=== PATIENT | male | born 1985 | race Caucasian/White ===

== ENCOUNTER → 2018-04-08 | Outpatient (CLI) | payer BC ==
--- NOTE | 2018-04-09 06:52 | CT ---
EXAMINATION TYPE: CT chest w con DATE OF EXAM: 04/08/2018 COMPARISON: NONE HISTORY: abnormal findings on recent cxr, c/o cough CT DLP: 411.5 mGycm. Automated Exposure Control for Dose Reduction was Utilized. TECHNIQUE: CT scan of the thorax is performed following with IV Contrast, patient injected with 100 mL of Isovue 300. FINDINGS: LUNGS: The lungs are grossly clear, there is no concerning parenchymal mass or nodule identified. T here is no pleural effusion or pneumothorax seen. The tracheobronchial tree is patent. MEDIASTINUM: There are no greater than 1 cm hilar or mediastinal lymph nodes. No cardiomegaly or pe ricardial effusion is seen. OTHER: Small degree of bilateral gynecomastia is present. Liver is heterogeneously hypodense. There i s subcentimeter low dense lesion anteriorly axial image 49 to small to further characterize. There is a vague 1 cm hypodense lesion posteriorly axial image 55 also too small to further characterize. Bot h lesions favored benign. Splenomegaly is present axial image 58 measuring 15.9 cm long axis. 4 oval densities in stomach likely reflect recently ingested pills prior to study. Correlate clinically. IMPRESSION: 1. No suspicious acute pulmonary process. 2. Splenomegaly noted which may warrant further clinical workup.
== END | disposition home or self-care (01) ==
LOC: RADCTMAIN 15:35
PROVIDERS: ATTEND Family Medicine
DX: R93.89 Abnormal findings on diagnostic imaging of other specified body structures (principal)
CPT/HCPCS: 71260; Q9967

== ENCOUNTER 2019-01-08 08:45 | Day surgery (SDC) | payer BC ==
[2019-01-06 10:12] VITALS: BMI 29.4
[2019-01-08 09:02] VITALS: TEMP 9.1
[2019-01-08] MEDS: LACTATED RINGERS 1,000 ML IV SCH ×2 (09:15→09:17)
[2019-01-08] MEDS ORDERED: LIDOCAINE 1% 20 ML VIAL (10MG/ML) FOR IV START INTRADERMA ONE (09:19)
[2019-01-08] MEDS ORDERED: PROPOFOL 10 MG/ML 20 ML VIAL IV ONE (09:28)
[2019-01-08] MEDS ORDERED: fentaNYL (PF) 50 MCG/ML 2 ML AMP ONE (09:28)
[2019-01-08] MEDS ORDERED: MIDAZOLAM 2 MG/2 ML VIAL ONE (09:28)
--- NOTE | 2019-01-08 09:46 | P.PCN ---
Date of Procedure: 01/08/19 Procedure(s) Performed: BRIEF HISTORY: Patient is a 33-year-old pleasant male scheduled for an elective colonoscopy as a part of evaluation of worsening abdominal pain and intermittent diarrhea for the last several months duration. He was diagnosed with ulcerative proctitis in 2015 and since then has been on maintenance Lialda and topical mesalamine enemas. His been having intermittent flareups almost 1 year so needing oral prednisone. Last flareup was in July 2018 and intermittent prednisone for 8 weeks. Since then he is been having intermittent diarrhea right lower quadrant abdominal pain with blood or mucus in the stool and hence he scheduled for colonoscopy to evaluate the extent of ulcerative colitis. PROCEDURE PERFORMED: Colonoscopy with random biopsies. PREOPERATIVE DIAGNOSIS: History of ulcerative proctitis diagnosed in August 2015 now with abdominal pain and diarrhea of several months duration. IV sedation per Anesthesia. PROCEDURE: After informed consent was obtained, the patient, was brought into the endoscopy unit. IV sedation was administered by Anesthesia under continuous monitoring. Digital rectal examination was normal. Initially the Olympus CF-160 flexible video colonoscope was then inserted in the rectum, gradually advanced into the cecum without any difficulty. Careful examination was performed as the scope was gradually being withdrawn. Ileocecal valve and the appendiceal orifice were visualized and appeared normal. Prep was excellent. Mucosa of the cecum, and terminal ileum appeared normal. There was active colitis involving the ascending colon, transverse colon, with mucosal erythema friability cobblestoning and spontaneous oozing consistent with moderate to severe ulcerative colitis. The biopsies were done from this area. The mucosa of the descending colon, sigmoid colon, and proximal rectum rectum appeared normal. It was active colitis noted in the distal rectum and biopsies were done from this area. Retroflexion was performed in the rectum and no lesions were seen. The patient tolerated the procedure well. IMPRESSION: Active colitis involving the ascending colon and transverse colon as well as the distal rectum consistent with moderate to severe ulcerative colitis Normal-appearing cecum, descending colon and sigmoid colon. RECOMMENDATIONS: Findings of this examination were discussed with the patient as well as his family. He'll be continued on Lialda 4 tablets daily in the meantime I discussed with him about biologic therapy. He will be seen in the office in 2-3 weeks.
[2019-01-08 09:50] VITALS: PULSE 86
[2019-01-08 10:13] LABS: Basophils # (A) 0.1 k/uL (0-0.2); Basophils % (A) 1 %; Eosinophils # (A) 1.1 k/uL (0-0.7); Eosinophils % (A) 13 %; HCT 47.9 % (39.0-53.0); HGB 15.9 gm/dL (13.0-17.5); Lymphocytes # (A) 1.5 k/uL (1.0-4.8); Lymphocytes % (A) 18 %; MCH 29.6 pg (25.0-35.0); MCHC 33.2 g/dL (31.0-37.0); MCV 88.9 fL (80.0-100.0); Mean Platelet Volume 7.4; Monocytes # (A) 0.5 k/uL (0-1.0); Monocytes % (A) 6 %; Neutrophils # (A) 4.9 k/uL (1.3-7.7); Neutrophils % (A) 60 %; Platelet Count 258 k/uL (150-450); RBC 5.39 m/uL (4.30-5.90); RDW 13.6 % (11.5-15.5); WBC 8.2 k/uL (3.8-10.6)
[2019-01-08 10:21] VITALS: BP 120/76; RESP 18
[2019-01-08 18:26] LABS: Hepatitis B Surface Antibody Reactive (Non-Reactive); Hepatitis B Surface Antigen Non-Reactive (Non-Reactive); Hepatitis C IgG Antibody Non-Reactive (Non-Reactive)
== END 2019-01-08 10:31 | disposition home or self-care (01) ==
LOC: ORWHC2ENDO 08:45
PROVIDERS: ATTEND Internal Medicine Gastroenterology
DX: K51.90 Ulcerative colitis, unspecified, without complications (principal); Z79.1 Long term (current) use of non-steroidal anti-inflammatories (NSAID)
CPT/HCPCS: 45380; 88305; 86803; 85025; 86706; 87340; 86704; 86480; J2250; J3010; J2704

== ENCOUNTER → 2020-06-05 | Outpatient (CLI) | payer BC ==
[2020-06-05 07:40] LABS: Basophils # (A) 0.1 k/uL (0-0.2); Basophils % (A) 2 %; Eosinophils # (A) 0.5 k/uL (0-0.7); Eosinophils % (A) 6 %; HCT 46.5 % (39.0-53.0); HGB 16.4 gm/dL (13.0-17.5); Lymphocytes # (A) 2.7 k/uL (1.0-4.8); Lymphocytes % (A) 33 %; MCH 30.7 pg (25.0-35.0); MCHC 35.2 g/dL (31.0-37.0); MCV 87.2 fL (80.0-100.0); Mean Platelet Volume 8.2; Monocytes # (A) 0.8 k/uL (0-1.0); Monocytes % (A) 9 %; Neutrophils # (A) 3.8 k/uL (1.3-7.7); Neutrophils % (A) 48 %; Platelet Count 200 k/uL (150-450); RBC 5.34 m/uL (4.30-5.90)
[2020-06-05 10:29] LABS: African American GFR (CKD) 126.9 (60.0-200.0); Albumin/Globulin Ratio 2.38 (1.60-3.17); Anion Gap 7.3 mmol/L (4.00-12.00); BUN/Creat Ratio 22.22 Ratio (12.00-20.00); Calcium 9.6 mg/dL (8.7-10.3); Carbon Dioxide 29.7 mmol/L (21.6-31.8); Globulin 2.1 g/dL (1.6-3.3); Non-African American GFR(CKD) 109.5 (60.0-200.0); Potassium 4.6 mmol/L (3.5-5.5); Total Bilirubin 0.7 mg/dL (0.3-1.2); Total Protein 7.1 g/dL (6.2-8.2)
== END | disposition home or self-care (01) ==
LOC: LABWHC1 07:12
PROVIDERS: ATTEND Internal Medicine Gastroenterology
DX: K51.90 Ulcerative colitis, unspecified, without complications (principal)
CPT/HCPCS: 36415; 80053; 85025

== ENCOUNTER → 2020-06-16 | Outpatient (CLI) | payer BC ==
[2020-06-16 08:10] LABS: Appearance,Urine Clear (Clear); Bilirubin,Urine Negative (Negative); Blood,Urine Negative (Negative); Color,Urine Yellow; Glucose,Urine (UA) Negative (Negative); Ketones,Urine Negative (Negative); Leukocyte Esterase,Urine Negative (Negative); Nitrite,Urine Negative (Negative); PH, Urine 5.5 (5.0-8.0); Protein,Urine Negative (Negative); Specific Gravity,Urine 1.026 (1.001-1.035); Urobilinogen,Urine <2.0 mg/dL (<2.0)
[2020-06-16 08:15] LABS: Basophils # (A) 0.1 k/uL (0-0.2); Basophils % (A) 2 %; Eosinophils # (A) 0.3 k/uL (0-0.7); Eosinophils % (A) 5 %; HCT 46.6 % (39.0-53.0); HGB 16.4 gm/dL (13.0-17.5); Lymphocytes # (A) 2.4 k/uL (1.0-4.8); Lymphocytes % (A) 34 %; MCHC 35.3 g/dL (31.0-37.0); Mean Platelet Volume 8.4; Monocytes # (A) 0.6 k/uL (0-1.0); Monocytes % (A) 9 %; Neutrophils # (A) 3.3 k/uL (1.3-7.7); Neutrophils % (A) 47 %; Platelet Count 197 k/uL (150-450)
[2020-06-16 11:13] LABS: African American GFR (CKD) 111.7 (60.0-200.0); Albumin 4.9 g/dL (3.80-4.90); Albumin/Globulin Ratio 2.45 (1.60-3.17); Anion Gap 8.1 mmol/L (4.00-12.00); Calcium 9.7 mg/dL (8.7-10.3); Carbon Dioxide 27.9 mmol/L (21.6-31.8); Chol/HDL Ratio 5.12; Non-African American GFR(CKD) 96.4 (60.0-200.0); Potassium 4.5 mmol/L (3.5-5.5); Total Bilirubin 0.9 mg/dL (0.3-1.2); Total Protein 6.9 g/dL (6.2-8.2)
[2020-06-16 11:21] LABS: T4, Free (Free Thyroxine) 1.1 ng/dL (0.80-1.80)
== END | disposition home or self-care (01) ==
LOC: LABWHC1 07:30
PROVIDERS: ATTEND Family Medicine
DX: Z00.00 Encounter for general adult medical examination without abnormal findings (principal)
CPT/HCPCS: 36415; 80053; 80061; 81003; 82306; 84439; 84443; 85025

== ENCOUNTER → 2020-11-29 | Outpatient (CLI) | payer BC ==
[2020-11-29 22:52] LABS: Basophils # (A) 0.04 X 10*3/uL (0.00-0.10); Basophils % (A) 0.6 %; Eosinophils # (A) 0.25 X 10*3/uL (0.04-0.35); Eosinophils % (A) 3.6 %; HCT 41.9 % (39.6-50.0); HGB 14.3 g/dL (13.0-17.0); Lymphocytes # (A) 1.94 X 10*3/uL (0.90-5.00); MCH 30.5 pg (27.0-32.0); MCHC 34.1 g/dL (32.0-37.0); MCV 89.3 fL (80.0-97.0); Mean Platelet Volume 11.4 fL (9.5-12.2); Monocytes % (A) 11.5 %; Neutrophils # (A) 3.88 X 10*3/uL (1.80-7.70); Platelet Count 197 X 10*3/uL (140-440); RBC 4.69 X 10*6/uL (4.40-5.60); RDW 13.1 % (11.5-14.5); WBC 6.93 X 10*3/uL (4.50-10.00)
[2020-11-30 01:24] LABS: African American GFR (CKD) 111.7 (60.0-200.0); Albumin 4.8 g/dL (3.80-4.90); Albumin/Globulin Ratio 2.18 (1.60-3.17); Anion Gap 5.7 mmol/L (4.00-12.00); Calcium 9.4 mg/dL (8.7-10.3); Carbon Dioxide 28.3 mmol/L (21.6-31.8); Globulin 2.2 g/dL (1.6-3.3); Non-African American GFR(CKD) 96.4 (60.0-200.0); Total Bilirubin 0.6 mg/dL (0.2-1.2)
== END | disposition home or self-care (01) ==
LOC: LABWHC1 15:54
PROVIDERS: ATTEND Internal Medicine Gastroenterology
DX: K51.90 Ulcerative colitis, unspecified, without complications (principal)
CPT/HCPCS: 36415; 80053; 85025

== ENCOUNTER → 2020-12-25 | Outpatient (CLI) | payer BC ==
--- NOTE | 2020-12-26 04:40 | MR ---
EXAMINATION TYPE: MR ankle RT wo/w con DATE OF EXAM: 12/25/2020 COMPARISON: None HISTORY: Lump on medial heel x 2 years-marker on lump CONTRAST: Standard multiplanar, multisequence MRI departmental protocol utilizing 9.5 mL intravenous Gadavist g adolinium contrast. The ankle mortise is anatomic. Collateral ligaments are intact. Medial and lateral flexor tendons of the ankle are intact. The Achilles tendon is intact. The plantar fascia appears normal. There is 11 m m rounded fluid signal area in the body of the calcaneus consistent with simple bone cyst. This appea rs to extend to the subtalar joint. There is a marker placed over the medial aspect of the calcaneus in the area of concern. No discrete solid or cystic mass identified in this area. There is no pathologic enhancement. There is no evidence of a soft tissue mass. Subtalar joint is intact. Intertarsal joints appear intac t. There is minimal subcutaneous edema around the posterior calcaneus. IMPRESSION: No evidence of ligament or tendon tear. No fracture. Minimal subcutaneous edema around the posterior foot. No discrete mass seen in the area of concern.
== END | disposition home or self-care (01) ==
LOC: RADMRIMAIN 06:07
PROVIDERS: ATTEND Podiatrist Foot & Ankle Surgery
DX: R60.0 Localized edema (principal)
CPT/HCPCS: 73723; A9585

== ENCOUNTER → 2022-12-27 | Outpatient (CLI) | payer BC ==
[2022-12-27 13:47] LABS: Basophils # (A) 0.04 X 10*3/uL (0.00-0.10); Basophils % (A) 0.6 %; Eosinophils # (A) 0.24 X 10*3/uL (0.04-0.35); Eosinophils % (A) 3.8 %; HCT 44.8 % (39.6-50.0); HGB 15.5 d/dL (13.0-17.0); Lymphocytes # (A) 2.52 X 10*3/uL (0.90-5.00); Lymphocytes % (A) 39.5 %; MCH 30.5 pg (27.0-32.0); MCHC 34.6 d/dL (32.0-37.0); Monocytes # (A) 0.74 X 10*3/uL (0.20-1.00); Monocytes % (A) 11.6 %; NRBC Per 100 WBC 0 X 10*3/uL (0.00-0.01); Neutrophils # (A) 2.81 X 10*3/uL (1.80-7.70); Platelet Count 189 X 10*3/uL (140-440); RBC 5.09 X 10*6/uL (4.40-5.60); RDW 13.4 % (11.5-14.5); WBC 6.38 X 10*3/uL (4.50-10.00)
[2022-12-27 15:00] LABS: ALT 39 U/L (10-49); AST 18 U/L (14-35); Albumin/Globulin Ratio 2.38 Ratio (1.60-3.17); Alkaline Phosphatase 67 U/L (41-126); BUN/Creat Ratio 16.11 Ratio (12.00-20.00); Blood Urea Nitrogen 14.5 mg/dL (9.0-27.0); C Reactive Protein <0.30 mg/dL (0.00-0.80); Calcium 9.8 mg/dL (8.7-10.3); Carbon Dioxide 26.6 mmol/L (21.6-31.8); Chloride 103 mmol/L (96-109); Chol/HDL Ratio 5.39 Ratio; Globulin 2.1 d/dL (1.6-3.3); Glucose 106 mg/dL (70-110); LDL Cholesterol,Calculated 159.6 mg/dL (0.0-131.0); Potassium 4.3 mmol/L (3.5-5.5); Sodium 140 mmol/L (135-145); Total Bilirubin 0.9 mg/dL (0.3-1.2); Total Protein 7.1 d/dL (6.2-8.2)
== END | disposition home or self-care (01) ==
LOC: LABWHC1 06:46
PROVIDERS: ATTEND Internal Medicine Gastroenterology
DX: K51.90 Ulcerative colitis, unspecified, without complications (principal); E78.2 Mixed hyperlipidemia
CPT/HCPCS: 36415; 80053; 80061; 82248; 85025; 86140

== ENCOUNTER → 2023-07-02 | Outpatient (CLI) | payer BC ==
[2023-07-02 16:12] LABS: ALT 62 U/L (10-49); AST 19 U/L (14-35); Alkaline Phosphatase 60 U/L (41-126); Blood Urea Nitrogen 17.1 mg/dL (9.0-27.0); Carbon Dioxide 26.3 mmol/L (21.6-31.8); Chloride 100 mmol/L (96-109); Globulin 2.5 g/dL (1.6-3.3); Glucose 100 mg/dL (70-110); Potassium 4.5 mmol/L (3.5-5.5); Sodium 137 mmol/L (135-145); Total Bilirubin 0.7 mg/dL (0.3-1.2); Total Protein 7.5 g/dL (6.2-8.2)
[2023-07-02 16:15] LABS: Basophils # (A) 0.03 X 10*3/uL (0.00-0.10); Basophils % (A) 0.5 %; Eosinophils # (A) 0.19 X 10*3/uL (0.04-0.35); HCT 45.7 % (39.6-50.0); HGB 15.5 g/dL (13.0-17.0); Lymphocytes # (A) 2.03 X 10*3/uL (0.90-5.00); Lymphocytes % (A) 31.8 %; MCH 29.8 pg (27.0-32.0); MCHC 33.9 g/dL (32.0-37.0); MCV 87.7 FL (80.0-97.0); Mean Platelet Volume 11.2 FL (9.5-12.2); Monocytes # (A) 0.75 X 10*3/uL (0.20-1.00); Monocytes % (A) 11.8 %; NRBC Per 100 WBC 0 X 10*3/uL (0.00-0.01); Neutrophils # (A) 3.36 X 10*3/uL (1.80-7.70); Neutrophils % (A) 52.6 %; Platelet Count 223 X 10*3/uL (140-440); RBC 5.21 X 10*6/uL (4.40-5.60); RDW 13.2 % (11.5-14.5); WBC 6.38 X 10*3/uL (4.50-10.00)
== END | disposition home or self-care (01) ==
LOC: LABWHC1 10:19
PROVIDERS: ATTEND Internal Medicine Gastroenterology
DX: K51.90 Ulcerative colitis, unspecified, without complications (principal)
CPT/HCPCS: 36415; 80053; 85025

== ENCOUNTER → 2024-01-15 | Outpatient (CLI) | payer BC ==
--- NOTE | 2024-02-04 11:46 | CONS ---
CONSULTATION A 38-year-old gentleman has been evaluated in Sleep Center for possible obstructive sleep apnea-hypopnea syndrome. HISTORY OF PRESENT ILLNESS: Sleep-wake evaluation. The patient's usual sleep schedule on weekdays from 11 p.m. to 5 a.m. and on weekends from midnight until about 9:30 a.m. Usually, no significant problems with falling asleep, although the patient has TV set in bedroom. During the sleep, the patient prefers to sleep on the stomach position or in the chair. He has loud snoring and witnessed episodes of stopped breathing during the sleep. The patient wakes up from sleep several times with one episode of nocturia. In the morning; the patient wakes up tired, has problems with memory, concentration, irritability. [place] Sleepiness Scale is 5. The patient usually does not take naps. PAST MEDICAL HISTORY: Positive for borderline blood pressure measurements, ulcerative colitis, memory problems. PAST SURGICAL HISTORY: Multiple colonoscopies. MEDICATIONS: 1. Humira 40 mg every 2 weeks. 2. Fenofibrate 48 mg once a day. SOCIAL HISTORY: Positive for smoking for about 12-pack years, quit 13 years ago. Alcohol consumption occasionally. FAMILY HISTORY: Hypertension, heart problems, stroke, snoring, cancer, restless legs problems. REVIEW OF SYSTEMS: Loud snoring, multiple awakenings from sleep. No fevers. No double vision. No recent chest pain. No shortness of breath. No abdominal pain. No bleeding episodes. No blood in the stool or urine. No seizure episodes. PHYSICAL EXAMINATION: GENERAL: gentleman without distress. VITAL SIGNS: BP 136/98, HR 92, RR 18, height 5 feet 8-1/2 inches, weight 210 pounds, body mass index 31.4, temperature 98.0, oxygen saturation at room air 97%. Oropharynx Retrognathia several millimeters, extremely low position of soft palate, Mallampati 3-4. HEENT: PERRLA, EOMI, evaluation of oropharynx showed tongue protrudes midline. NECK: Supple, no JVD. Thyroid is not palpable. Wide, 17.5 inches. LUNGS: Clear to percussion and to auscultation. Good air exchange. No wheezing or rhonchi. HEART: S1, S2 regular. No murmurs, gallops, or rubs. ABDOMEN: Soft and nontender. Bowel sounds are present. No organomegaly appreciated. EXTREMITIES: No clubbing or cyanosis. [employer]: Awake, alert, and oriented X3. Cranial nerves 2 to 7 intact. There is no fasciculation or atrophy. noted. No focal deficits observed. IMPRESSION: 1. Loud snoring, witnessed episodes of stopped breathing during the sleep, multiple awakenings from sleep, the patient prefers to sleep on the belly or in sitting positions, extremely low position of soft palate, Mallampati 3-4, wide neck, 17.5 inches in circumference, obstructive sleep apnea-hypopnea syndrome. 2. Mild obesity by body mass index of 31.4. 3. Hypertension in the office. 4. Ulcerative colitis. 5. History of some recent memory problems. PLAN: 1. Home sleep apnea test for evaluation of the patient's breathing during sleep. 2. Following plan after reviewing sleep study. 3. Sleep hygiene with time in bed for at least 8 hours. 4. Precautions related to driving. No driving if feeling sleepiness. Thank you very much for referring this patient for consultation. MMODL / IJN: [id number] / HUBERT
== END ==
LOC: 3 N SLEEP 11:30
PROVIDERS: ATTEND Internal Medicine
CPT/HCPCS: 99211

== ENCOUNTER → 2024-01-22 | Outpatient (CLI) | payer BC ==
--- NOTE | 2024-01-29 16:10 | P.PCN ---
Description of Procedure: CLINICAL: A home sleep apnea test has been done for confirmation of possible obstructive sleep apnea-hypopnea syndrome. DESCRIPTION OF PROCEDURE: RESULTS: Recording time was 6 hours 50 minutes. Evaluation time was 6 hours 39 minutes. Evaluation time is sufficient for making conclusion about results of the test. Raw data of sleep recording has been reviewed and is adequate. Respiratory channel showed 18 apneas and 170 hypopneas. Apnea-hypopnea index was 28.2 per hour. Pulse rate in the range between minimum 62, maximum 129, average 85 by computer calculation. Lowest desaturation was 69%. IMPRESSION: 1. Moderate, close to severe Obstructive Sleep Apnea Hypopnea Syndrome. Please see other impressions from consultation. PLAN: 1. The patient should have PAP titration for correction of respiratory abnormallities during sleep. 2. Sleep hygiene with regular time in bed for at least 8 hours. 3. Watching weight. 4. No driving if feeling any sleepiness. Thank you very much for allowing me to participate in the management of your patient. Sincerely, Jai Benoit MD, PhD, FAASM Diplomat of [place] Sleep Medicine Board of [place] Teacher of [facility] [place] cc: Chelle Hauser MD
== END ==
LOC: 3 N SLEEP 16:30
PROVIDERS: ATTEND Internal Medicine

== ENCOUNTER 2024-02-29 19:55 | Outpatient (CLI) | payer BC ==
--- NOTE | 2024-03-04 13:11 | P.PCN ---
Description of Procedure: CLINICAL: Titration with positive air pressure has been done for correction of respiratory abnormalities during sleep. DESCRIPTION OF PROCEDURE: The standard montage for clinical polysomnography included the electroencephalogram, the electrocardiogram, the mentalis surface electromyography and Lead II cardiography. The respiratory battery consisted of measurements of nasal /buccal air flow, pressure transducer measurements from the nose, thoracic and /or abdominal effort and intercostal surface electromyography. Video monitoring has been done to check for any parasomnia events. Nocturnal oxyhemoglobin saturations were obtained by finger oximetry. Step-mcleod titration with positive airway pressure was utilized to control respiratory events. Raw data of sleep recording has been reviewed and is adequate. RESULTS: Sleep efficiency was decreased to 69.9%. Latency to sleep onset was prolonged to 40.0 minutes.]. Sleep architecture showed stage N1 was short 1.0%, Delta sleep was short 1.4%, REM sleep decreased to 15.4%. Heart rate was minimum 67 BPM, maximum 79 BPM, average 72 BPM. EMG showed 33.4 periodic limb movements per hour with 0 micriarousals per hour. PAP titration have been done with CPAP up to the pressure 8 cm H2O. The best results were at the pressure 7 cm H2O. Apnea hypopnea index reduced to 0, at that pressure patient was in non-REM sleep for 218 minutes and then REM sleep for 44 minutes. IMPRESSION: 1. Obstructive sleep apnea hypopnea syndrome on controle with PAP treatment. 2. Significant periodic limb movements have been documented. Please see other impressions from consultation. PLAN: 1. The patient will have treatment with positive air pressure equipment with the level of pressure AutoPAP 5-10 cm H2O and should use it every night for the whole night. 2. Watching weight. 3. Sleep hygiene with regular time in bed for at least 8 hours. 4. No driving if feeling any sleepiness. 5. I will see the patient for follow up visit to explain the results of the test, recommendations, check compliance with treatment and make any necessary adjustment related to mask fitting, pressure and humidification. 6. Please check iron profile including ferritin level. Low level of iron may increase risk for periodic limb movements Thank you very much for allowing me to participate in the management of your patient. Sincerely, Jai Benoit MD, PhD, FAASM Diplomat of [place] [employer] Sleep Medicine Board of [place] [employer] Account Executive [facility] [place] cc: Murtaza Corbett MD
== END 2024-03-01 05:23 | disposition home or self-care (01) ==
LOC: 3 N SLEEP 19:55
PROVIDERS: ATTEND Internal Medicine
CPT/HCPCS: 95811

== ENCOUNTER → 2024-05-06 | Outpatient (CLI) | payer BC ==
[2024-05-06 16:37] VITALS: BP 165/83; PULSE 102; RESP 18; TEMP 98
--- NOTE | 2024-05-06 16:50 | P.PROGSL ---
Subjective DATE: 05/06/2024 FOLLOW UP VISIT. Patient with obstructive sleep apnea hypopnea syndrome return to sleep center for follow-up visit. Recently patient had sleep study which documented obstructive sleep apnea hypopnea syndrome. Patient was initiated on PAP therapy and today is first visit after treatment was started. Patient was able to use PAP equipment every night for the whole night. The patient does not have significant problems with the mask, PAP pressure and humidification. [place] sleepiness scale is 3, which is perfect. I checked information from PAP unit. PAP unit pressure 5-10, average 9.6 cm H2O. Usage is 100% and 90% for more then 4 hours, average 6.5 hours per night. Leak is perfect 0.6 l/m. Apnea Hypopnea Index is 0.3, which is normal. MEDICATIONS: Please see below During physical exam: GENERAL: A pleasant patient without any distress. VITAL SIGNS: Please see below, weight 214 pounds. HEENT: PERRLA, EOMI.low position of soft palate, Mallapati 3-4. NECK: Supple. No JVD. LUNGS: Clear to percussion and to auscultation. Good air exchange. No wheezing or rhonchi. HEART: S1, S2 regular. ABDOMEN: Soft and nontender.[] EXTREMITIES: No clubbing or cyanosis. [employer]LECTION [employer]: Awake, alert, and oriented x3. No focal deficit. Impressions: 1. Obstructive sleep apnea-hypopnea syndrome. Patient demonstrated great compl iance with treatment, benefiting from treatment. 2. Ulcerative colitis. 3. History of memory problems. 4. Hypertension in the office. 5. Mild obesity. Plan: 1. Continue using PAP equipment every night for the whole night. 2. To change air filter at least 1-2 times per month. 3. PAP unit should stay lower then position of the head. 4. Advised patient to remove all remaining water from humidifier canister daily and make it dry after each usage. Refill canister with fresh distilled water before each usage. 5. Sleep hygiene with regular time in bed for at least 8 hours. 6. Precautions related to driving. No driving if feel any sleepiness. 7. I will maintain prescription for PAP supplies including mask, tube, filters. 8. Follow up visit in 6 months or earlier if patient has any problems. 9. Watching weight. Thank you very much for allowing me to participate in the management of your patient. Jai Benoit MD, PhD, FAASM. Diplomat of [place] [employer], Sleep Medicine Board by [place] [employer] P[employer] [facility] [place] Objective - Vital Signs Vital Signs: Vital Signs Temp 98.0 F 05/06/24 16:36 Pulse 102 H 05/06/24 16:36 Resp 18 05/06/24 16:36 BP 165/83 05/06/24 16:36 Pulse Ox 97 05/06/24 16:36 FiO2 Intake & Output 05/05/24 05/06/24 05/06/24 18:59 06:59 18:59 Weight 97.069 kg Home Medications: Home Medications Medication Instructions Recorded Confirmed Type Adalimumab [Humira Pen] 40 mg SQ [id number] 02/18/23 02/21/23 History Ascorbic Acid [Vitamin C] 1,000 mg PO QAM 02/18/23 02/21/23 History Cholecalciferol (Vitamin D3) 125 mcg PO Q48D 02/18/23 02/21/23 History [Vitamin D3 (125 MCG = 5,000 IU)] Fenofibrate 40 mg PO QAM 02/18/23 02/21/23 History [place] 1 cap PO QAM 02/18/23 02/21/23 History Fish Oil/Dha/Epa [Fish Oil 1,200 2,400 mg PO QAM 02/19/23 02/21/23 History mg Fish Oil]
== END ==
LOC: 3 N SLEEP 16:23
PROVIDERS: ATTEND Internal Medicine
DX: G47.33 Obstructive sleep apnea (adult) (pediatric) (principal); K51.90 Ulcerative colitis, unspecified, without complications; I10 Essential (primary) hypertension; E66.9 Obesity, unspecified; Z99.89 Dependence on other enabling machines and devices; Z86.59 Personal history of other mental and behavioral disorders; Z79.899 Other long term (current) drug therapy; Z87.891 Personal history of nicotine dependence; Z68.29 Body mass index [BMI] 29.0-29.9, adult
CPT/HCPCS: 99212